=== PATIENT | female | born 1985 ===

== ENCOUNTER 2018-02-25 03:23 | Inpatient (IN) | payer MEDICAID ==
[2018-02-25] MEDS ORDERED: Acetaminophen 500 MG TAB PO PRN (04:33)
[2018-02-25] MEDS ORDERED: Butorphanol Tartrate 1 MG/ML VIAL SLOW IVP PRN (04:33)
[2018-02-25] MEDS ORDERED: Ondansetron PF 4 MG/2 ML Vial IVP PRN ×2 (04:33→06:53)
[2018-02-25] MEDS ORDERED: HYDROcodone/Acetaminophen 5/325 mg Tablet PO PRN ×4 (04:45→19:57)
[2018-02-25] MEDS ORDERED: Methylergonovine 0.2 MG/ML VIAL IM PRN (04:45)
[2018-02-25] MEDS ORDERED: Carboprost 250 MCG/ML AMP IM PRN (04:45)
[2018-02-25] MEDS ORDERED: Ibuprofen 800 MG TAB PO PRN (04:45)
[2018-02-25] MEDS ORDERED: Lidocaine 1% (PF) 30 ML VIAL SC PRN (04:45)
[2018-02-25] MEDS ORDERED: Diphenoxylate HCl/Atropine Tablet PO PRN ×2 (04:45)
[2018-02-25] MEDS ORDERED: NS w/ Oxytocin 10 units 500 ML IV SCH ×2 (04:45)
[2018-02-25] MEDS ORDERED: NS / Oxytocin 40 units/1000ml 1,000 ML IV SCH ×2 (04:45→19:57)
[2018-02-25] MEDS ORDERED: Misoprostol 200 MCG TAB RC PRN (04:45)
[2018-02-25] MEDS: Lactated Ringer's 1,000 ML IV SCH ×3 (05:05→11:56)
[2018-02-25 05:16] LABS: Hemoglobin 13.5 g/dL (12.0-16.0); Mean Corpuscular HGB CONC 33.1 g/dL (32.0-36.0); Mean Corpuscular Hemoglobin 31.8 pg (27.0-31.0); Mean Corpuscular Volume 96.1 fL (78.0-98.0); Mean Platelet Volume 10.3 fL (7.4-10.4); Platelet Count 223 thou/uL (130-400); RBC Distribution Width 11.8 % (11.5-14.5); Red Blood Cell (RBC) Count 4.25 mill/uL (4.20-5.40); White Blood Cell (WBC) Count 12.8 thou/uL (4.8-10.8)
[2018-02-25 05:39] VITALS: BMI 27.1
[2018-02-25 05:54] LABS: HBSAg Index 0.23 S/CO (0-0.99); Hep B Surf Ag Non-Reactive S/CO (NonReactive); Syphilis Antibody Nonreactive (Nonreactive); Syphilis Antibody Index 0.07 S/CO (<1.00 Non-Reactive)
[2018-02-25] MEDS ORDERED: Fentanyl 4 mcg/Bup 0.1% Cadd 100 ML ONE ×2 (06:06→14:37)
[2018-02-25] MEDS ORDERED: Promethazine HCl 25 MG/ML VIAL IM PRN (06:53)
[2018-02-25] MEDS ORDERED: Acetaminophen 325 MG TAB PO PRN (06:53)
[2018-02-25] MEDS ORDERED: Eucerin (Mineral Oil/Petrolatum,White) 30 gm Jar TOP PRN (06:53)
[2018-02-25] MEDS ORDERED: ePHEDrine/0.9% NaCl/PF SYRINGE 50 mg/10 ml SLOW IVP PRN (06:53)
[2018-02-25] MEDS ORDERED: diphenhydrAMINE 50 MG/ML VIAL IVP PRN (06:53)
[2018-02-25] MEDS ORDERED: Lactated Ringer's 500 ML IV PRN (06:53)
[2018-02-25] MEDS ORDERED: Naloxone HCl 0.4 mg/ml Vial IVP PRN ×2 (06:53)
[2018-02-25] MEDS ORDERED: Fentanyl 4 mcg/Bupivacaine 0.1% Cassette 100 ML EPIDURAL SCH (07:00)
[2018-02-25] MEDS ORDERED: Communication Order-Pharmacy FS SCH (07:00)
--- NOTE | 2018-02-25 10:32 | PDOC.LDHP ---
Labor and Delivery H&P Chief complaint: loss of fluid HPI: 32yo at 38w5d by LMP c/o ROM clear fluid at 0200 this am, painful contractions. Current gestational age (weeks): 38 Due date: 03/06/18 Dating criteria: last menstrual period (1) Grav: 1 Para: 0 Current complications: none (d) Abnormal US findings: No Past Medical History: denies Current medications: pre- vitamins Previous surgical history: none Allergies/Adverse Reactions: Allergies Allergy/AdvReac Type Severity Reaction Status Date / Time No Known Allergies Allergy Verified 02/25/18 05:57 Social history: none - Physical Exam Vital signs reviewed and normal: yes General: NAD Heart: RRR Lungs: CTAB Abdomen: gravid Extremeties: no edema FHT: category 1 Avinger contractions every: 2-3min - Vaginal Exam cm dilated: 2 Effacement: 50% Station: -2 (by RN at 0730) - OB Labs RH: positive Antibody Screen: negative HIV: negative RPR: negative HEPSAg: negative 1 hour GCT: negative GBS: negative Urine drug screen: negative Rubella: immune - Assessment L&D Assessment: term rupture in membranes - Plan Plan: admit to L&D, labor augmentation if indicated, informed consent obtained, anesthesia consult for pain management
--- NOTE | 2018-02-25 17:53 | PDOC.OPDEL ---
OB Operative/Delivery Note Delivery Dr/Surgeon: Yrn Assist: n/a Pre-Delivery Diagnosis: ruptured membrane Procedure/Post Delivery Dx: spontaneous vaginal delivery Weeks gestation: 38 Anesthesia: epidural - Findings A Sex: male - 1 min: 9 - 5 min: 9 - Additional Findings/Plan Placenta delivered: spontaneous Repaired Obstetrical Laceration: 1st degree (repaired with 2-0 vicryl for hemostasis) Estimated blood loss: 200cc, qbl pending Post delivery plan: routine recovery
[2018-02-25] MEDS ORDERED: Bisacodyl 10 MG SUPP PR PRN (19:57)
[2018-02-25] MEDS ORDERED: Benzocaine/Menthol 20-0.5% 60 ML CAN TOP PRN (19:57)
[2018-02-25] MEDS ORDERED: Preparation H Ointment 28 GM TUBE PR PRN (19:57)
[2018-02-25] MEDS ORDERED: diphenhydrAMINE 25 MG CAP PO PRN (19:57)
[2018-02-25] MEDS ORDERED: Lanolin Ointment 7 GM TUBE TOP PRN (19:57)
[2018-02-25] MEDS ORDERED: Milk Of Magnesia 30 ML UDCUP PO PRN (19:57)
[2018-02-25] MEDS: Ibuprofen 800 MG TAB PO SCH (21:49)
[2018-02-25] MEDS: Docusate Calcium (SURFAK) 240 MG CAP PO SCH (21:49)
[2018-02-26] MEDS: Ibuprofen 800 MG TAB PO SCH ×3 (06:14→21:45)
[2018-02-26] MEDS ORDERED: Bupivacaine/Epinephrine 0.25% 30 ML VIAL ONE (08:47)
[2018-02-26] MEDS ORDERED: Adacel (T-DAP) 0.5 ML VIAL IM ONE (09:00)
--- NOTE | 2018-02-26 13:41 | PDOC.PP ---
Post Progress Note Post Day #: 1 PO intake tolerated: yes Flatus: yes Ambulation: yes Vital Signs (12 hours) Temp Pulse Resp BP Pulse Ox 02/26/18 11:47 97.3 F L 80 18 105/59 L 02/26/18 07:44 97.9 F 68 16 98/58 L 95 Weight Weight 144 lb - Physical Examination General: NAD Cardiovascular: RRR Respiratory: non-labored breathing Abdominal: no distention, appropriately TTP Fundus firm & at: umb Neurological: no gross focal deficits Psychiatric: normal affect Result Diagrams: 02/25/18 05:00 Additional Labs: Post Labs Blood Type A POSITIVE 02/25/18 05:00 Hep Bs Antigen Non-Reactive S/CO (NonReactive) 02/25/18 05:00 - Assessment/Plan PPD1 s/p TSVD VSSAF Doing well no issues, lochia < menses Rh pos RImm Cont PP mcc tomorrow.
[2018-02-26] MEDS: Prenatal Vitamin 1 TAB PO SCH (14:57)
[2018-02-26] MEDS: Docusate Calcium (SURFAK) 240 MG CAP PO SCH ×2 (14:58→21:45)
[2018-02-26] MEDS: Ferrous Sulfate 325 MG TAB PO SCH (18:16)
[2018-02-27] MEDS: Ibuprofen 800 MG TAB PO SCH (05:38)
--- NOTE | 2018-02-27 05:40 | PDOC.PP ---
Post Progress Note Post Day #: 2 Subjective: Doing well. PO intake tolerated: yes Flatus: yes Ambulation: yes Vital Signs (12 hours) Temp Pulse Resp BP Pulse Ox 02/26/18 19:40 98.2 F 73 18 110/64 98 Weight Weight 144 lb Past 24 hour vitals reviewed. Tmax 99.4 - Physical Examination General: NAD Cardiovascular: no m/r/g Respiratory: clear to auscultation bilaterally Abdominal: + bowel sounds, lochia, no distention, appropriately TTP Extremities: negative homans (B) Neurological: no gross focal deficits Psychiatric: A&Ox3, normal affect Result Diagrams: 02/25/18 05:00 Additional Labs: Post Labs Blood Type A POSITIVE 02/25/18 05:00 Hep Bs Antigen Non-Reactive S/CO (NonReactive) 02/25/18 05:00 (1) Vaginal delivery Code(s): O80 - ENCOUNTER FOR FULL-TERM UNCOMPLICATED DELIVERY Status: Acute - Assessment/Plan PPD 2: doing well. No evidence PP complication. Plan on noon discharge today.
[2018-02-27] MEDS: Docusate Calcium (SURFAK) 240 MG CAP PO SCH (08:41)
[2018-02-27] MEDS: Prenatal Vitamin 1 TAB PO SCH (08:41)
[2018-02-27 09:02] VITALS: BP 95/55; TEMP 98.8
== END 2018-02-27 15:21 | disposition home or self-care (01) | DRG 807 ==
LOC: L&D/OP 03:23 → L&D 04:25 → 3SE 20:33
PROVIDERS: ADMIT Student in an Organized Health Care Education/Training Program; ATTEND Student in an Organized Health Care Education/Training Program
PROC: 10E0XZZ Delivery of Products of Conception, External Approach (ICD-10-PCS; principal; 2018-02-25)
PROC: 0HQ9XZZ Repair Perineum Skin, External Approach (ICD-10-PCS; 2018-02-25)
DX: O70.0 First degree perineal laceration during delivery (principal); Z37.0 Single live birth; Z3A.38 38 weeks gestation of pregnancy
CPT/HCPCS: 51701; 51702; 85027; 86780; 86850; 86900; 86901; 87340; 88307; 99285